=== PATIENT | female | born 1995 | race African-American/Black ===

== ENCOUNTER 2017-09-11 17:26 | Emergency (ER) | payer SELFPAY ==
[2017-09-11] MEDS ORDERED: DEXAMETHASONE 4 MG TABLET PO ONE (19:26)
[2017-09-11] MEDS ORDERED: IPRATROPIUM/ALBUTEROL 0.5-2.5 MG/3 ML AMPUL NEB ONE (19:26)
[2017-09-11] MEDS ORDERED: BUTALB/ACETAMINOPHEN/CAFFEINE 1 TAB EACH PO ONE (19:27)
[2017-09-11] MEDS ORDERED: IBUPROFEN 800 MG TABLET PO ONE (19:29)
--- NOTE | 2017-09-11 19:29 | ER Document Report ---
HPI - HPI Patient complains to provider of: cough, bodyache, COATES Onset: Other - 2 days Onset/Duration: Persistent Quality of pain: Achy Pain Level: 3 Context: Patient presents with nonproductive cough, headache and body aches that started yesterday. Patient complains of mild sore throat. Patient states she had a fever yesterday but none today. Patient denies any nausea, vomiting or diarrhea. Associated Symptoms: Body/muscle aches, Nonproductive cough, Fever - Yesterday, Rhinnorhea, Sore throat. denies: Chest pain, Earache, Nausea, Vomiting Exacerbated by: Denies Relieved by: Denies Similar symptoms previously: Yes Recently seen / treated by doctor: No - ROS ROS below otherwise negative: Yes Systems Reviewed and Negative: Yes All other systems reviewed and negative - CONSTITUTIONAL Constitutional: REPORTS: Fever - Yesterday - EENT EENT: REPORTS: Sore Throat, Congestion - NEURO Neurology: REPORTS: Headache - CARDIOVASCULAR Cardiovascular: DENIES: Chest pain - RESPIRATORY Respiratory: REPORTS: Coughing. DENIES: Trouble Breathing - GASTROINTESTINAL Gastrointestinal: DENIES: Abdominal Pain, Nausea, Patient vomiting, Diarrhea - REPRODUCTIVE Reproductive: DENIES: : - MUSCULOSKELETAL Notes: Generalized body aches - DERM Skin Color: Normal Skin Problems: None Past Medical History - General Information source: Patient - Social History Smoking Status: Never Smoker Frequency of alcohol use: Occasional Drug Abuse: None Occupation: [employer] Family History: Reviewed & Not Pertinent Pulmonary Medical History: Reports: Hx Asthma Past Surgical History: Reports: Hx Genitourinary Surgery - Immunizations Hx Diphtheria, Pertussis, Tetanus Vaccination: Yes Vertical Provider Document - CONSTITUTIONAL Agree With Documented VS: Yes Exam Limitations: No Limitations General Appearance: WD/WN, No Apparent Distress - INFECTION CONTROL TRAVEL OUTSIDE OF THE [place] IN LAST 30 DAYS: No - HEENT HEENT: Atraumatic, Normocephalic, Pharyngeal Tenderness, Pharyngeal Erythema. negative: Pharyngeal Exudate, Tympanic Membrane Red, Tympanic Membrane Bulging - NECK Neck: Normal Inspection, Supple. negative: Lymphadenopathy-Left, Lymphadenopathy-Right Notes: No meningismus, negative Kernig and Brudzinski - RESPIRATORY Respiratory: No Respiratory Distress, Chest Non-Tender, Wheezing O2 Sat by Pulse Oximetry: 99 - CARDIOVASCULAR Cardiovascular: Regular Rate, Regular Rhythm, No Murmur - BACK Back: Normal Inspection. negative: CVA Tenderness-Right, CVA Tenderness-Left - MUSCULOSKELETAL/EXTREMETIES Musculoskeletal/Extremeties: RAQUEL, FROM - NEURO Level of Consciousness: Awake, Alert, Appropriate Motor/Sensory: No Motor Deficit - DERM Integumentary: Warm, Dry, No Rash Course - Re-evaluation Re-evalutation: 09/11/17 20:53 Wheezing resolved. Patient states headache pain is starting to resolve. Patient states that aches are improving as well. Patient nontoxic in appearance. No concern for meningitis or encephalitis. No concern for pneumonia at this time. - Vital Signs Vital signs: Temp Pulse Resp BP Pulse Ox 98.7 F 82 16 138/78 H 99 09/11/17 17:39 09/11/17 17:39 09/11/17 17:39 09/11/17 17:39 09/11/17 17:39 Discharge - Discharge Clinical Impression: Wheezing Upper respiratory infection Qualifiers: URI type: unspecified URI Qualified Code(s): J06.9 - Acute upper respiratory infection, unspecified Headache Qualifiers: Headache type: unspecified Headache chronicity pattern: unspecified pattern Intractability: not intractable Qualified Code(s): R51 - Headache Condition: Stable Disposition: HOME, SELF-CARE Instructions: Acetaminophen, Headache ([facility]), Upper Respiratory Illness ([facility]), Viral Syndrome ([facility]) Additional Instructions: Return immediately for any new or worsening symptoms Followup with your primary care provider, call tomorrow to make a followup appointment Prescriptions: Butalb/Acetaminophen/Caffeine [Fioricet (50-325-40 mg) Tablet] 1 - 2 tab PO Q4H PRN #12 each PRN Reason: Naproxen [Naprosyn 250 Nmg Tablet] 1 tab PO BID #14 tablet Forms: Return to Work Referrals: LUC GARZA MD [PEDIATRICS] - Follow up tomorrow
[2017-09-11] MEDS ORDERED: ALBUTEROL SULFATE HFA (90 MCG/PUFF) 8 GM MDI (1 MDI/ER DISP) IH ONE (20:53)
[2017-09-11 21:09] VITALS: BP 136/87
== END 2017-09-11 21:05 | disposition home or self-care (01) ==
LOC: ER 17:26
DX: J45.909 Unspecified asthma, uncomplicated (principal); J02.9 Acute pharyngitis, unspecified; R51 Headache; R05 Cough; M79.1 Myalgia; J34.89 Other specified disorders of nose and nasal sinuses
CPT/HCPCS: 94640; 99283; J3490 ×2; J7620

== ENCOUNTER 2018-05-11 22:39 | Emergency (ER) | payer SELFPAY ==
[2018-05-11 22:49] VITALS: BP 127/81
--- NOTE | 2018-05-11 23:20 | RADIOLOGY REPORT (SQ) ---
EXAM DESCRIPTION: XR ANKLE 2 VIEWS COMPLETED DATE/TME: 05/11/2018 00:00 CLINICAL HISTORY: 22 years Female, Pain s/p injury- twisted ankle Friday COMPARISON: None. Findings: Bones, joints, and soft tissues of the LEFT XR ANKLE 2 VIEWS appear intact. IMPRESSION: No acute findings.
[2018-05-11] MEDS ORDERED: IBUPROFEN 600 MG TABLET PO ONE (23:51)
--- NOTE | 2018-05-11 23:57 | ER Document Report ---
ED Extremity Problem, Lower - General Chief Complaint: Ankle Injury Stated Complaint: LEFT ANKLE PAIN Time Seen by Provider: 05/11/18 23:36 Mode of Arrival: Ambulatory Information source: Patient Notes: Patient presents with chief complaint of left ankle pain after patient slipped down some steps on Friday and twisted the ankle. Patient reports she has been trying to take Tylenol at home but has had minimal relief. Patient requesting an x-ray today. TRAVEL OUTSIDE OF THE [place] IN LAST 30 DAYS: No - Related Data Allergies/Adverse Reactions: amoxicillin Allergy (Verified 09/11/17 17:26) Penicillins Allergy (Verified 09/11/17 17:26) Past Medical History - General Information source: Patient - Social History Smoking Status: Never Smoker Chew tobacco use (# tins/day): No Frequency of alcohol use: Rare Drug Abuse: None Family History: Reviewed & Not Pertinent Patient has suicidal ideation: No Patient has homicidal ideation: No Pulmonary Medical History: Reports: Hx Asthma Renal/ Medical History: Denies: Hx Peritoneal Dialysis Past Surgical History: Reports: Hx Genitourinary Surgery - prolapsed urethra - Immunizations Hx Diphtheria, Pertussis, Tetanus Vaccination: Yes Review of Systems - Review of Systems Constitutional: No symptoms reported EENT: No symptoms reported Cardiovascular: No symptoms reported Respiratory: No symptoms reported Gastrointestinal: No symptoms reported Genitourinary: No symptoms reported Female Genitourinary: No symptoms reported Musculoskeletal: See HPI Skin: No symptoms reported Hematologic/Lymphatic: No symptoms reported Neurological/Psychological: No symptoms reported Physical Exam - Vital signs Vitals: Temp Pulse Resp BP Pulse Ox 98.5 F 87 16 127/81 H 99 05/11/18 22:47 05/11/18 22:47 05/11/18 22:47 05/11/18 22:47 05/11/18 22:47 - Notes Notes: PHYSICAL EXAMINATION: GENERAL: Well-appearing, well-nourished and in no acute distress. HEAD: Atraumatic, normocephalic. EYES: Pupils equal round extraocular movements intact, conjunctiva are normal. ENT: Nares patent NECK: Normal range of motion LUNGS: No respiratory distress Musculoskeletal: Normal range of motion, mild swelling noted to left ankle, no ecchymosis, normal range of motion, capillary refill less than 3 seconds, normal motor and sensation distal to area of injury. NEUROLOGICAL: Normal speech, normal gait. PSYCH: Normal mood, normal affect. SKIN: Warm, Dry, normal turgor, no rashes or lesions noted. Course - Re-evaluation Re-evalutation: X-rays negative for any acute findings in the ankle. Patient will be placed in an Harinder wrap and put on crutches. Patient will be instructed to take ibuprofen 600 mg every 6 hours, ice and elevate the extremity. Follow-up with primary care if not improving over the next 3-5 days. - Vital Signs Vital signs: Temp Pulse Resp BP Pulse Ox 98.5 F 87 16 127/81 H 99 05/11/18 22:47 05/11/18 22:47 05/11/18 22:47 05/11/18 22:47 05/11/18 22:47 Procedures - Immobilization Left ankle Pre-Proc Neuro Vasc Exam: Normal Immobilizer type: Harinder wrap Performed by: Provider Post-Proc Neuro Vasc Exam: Normal Discharge - Discharge Clinical Impression: Left ankle pain Ankle sprain Qualifiers: Encounter type: initial encounter Involved ligament of ankle: unspecified ligament Laterality: left Qualified Code(s): S93.402A - Sprain of unspecified ligament of left ankle, initial encounter Condition: Stable Disposition: HOME, SELF-CARE Additional Instructions: HARINDER WRAP: A compression dressing (harinder wrap) has been placed. This helps hold the area still. It limits swelling and internal bleeding. The wrap should be comfortably snug -- not tight. You should feel a sense of pressure, but not severe pain under the wrap. Unless the physician tells you otherwise, you can adjust the wrap for comfort. If the wrap causes symptoms suggesting it's too tight -- uncomfortable pressure, swelling or discoloration beyond the wrap, numbness, or severe pain - - you must loosen the wrap. If these symptoms don't resolve promptly, return for re-evaluation. SPRAINED ANKLE: Your sprained ankle results from stretching or tearing of the ligaments which support the ankle. This usually results from twisting the foot inward and under. The ligaments will require time and protection in order to heal properly. Many ankle sprains are quite disabling, and should be taken seriously. The usual treatment for an ankle sprain is cold packs; protection with tape , splints, or wraps; elevation; and staying off the ankle for at least a day. As the ankle improves, you can walk IF it's not painful to bear weight. Sports are best postponed until healing is complete. More serious sprains usually require strengthening exercises after early healing. Your physician has assessed the seriousness of the ligament injury to your ankle. However, the treatment may change, depending on how your ankle progresses. If further exams were recommended, it is important that you follow through. Call the doctor if your foot becomes numb, painful, or severely swollen. USE OF CRUTCHES: The doctor has recommended that you not bear weight at this time. You will need to use crutches. Adjust the crutches so the tops come to about two inches under the armpit while you are standing upright. Use your hands -- not your armpits -- to support your weight. To get into a chair, support yourself with one crutch on the injured side. Hold the chair with the other hand, then lower yourself while putting all your weight on the good leg. Going up stairs is `good leg up, step up, then bring up crutches and bad leg.' Down stairs is `bad leg and crutches down, then bring good leg down.' If you develop numbness or swelling in an arm or hand, you are using the crutches incorrectly. Return if you are having any problems with the crutches. ICE & ELEVATION: Apply ice packs frequently against the painful area. Many different schedules are recommended, such as "20 minutes on, 20 minutes off" or "one hour ice, two hours rest." If you need to work, you may need to go longer between ice treatments. You should plan to have the area ice packed AT LEAST one- fourth of the time. The ice should be applied over the wrap, tape, or splint, or over a layer of cloth -- not directly against the skin. Some ice bags have a built-in cloth and can be put directly on the skin. Your injured part should be elevated as much as possible over the next 48 hours. Try to keep the injury above the level of the heart. Avoid use of the injured area. Elevation and rest will decrease the swelling. USE OF [id number] IBUPROFEN: Ibuprofen (Advil, Nuprin, Medipren, Motrin IB) is a medication for fever and pain control. In addition, it has anti- inflammatory effects which may be beneficial, especially in the treatment of injuries. It's best to take ibuprofen with food. Persons with ulcer disease or allergy to aspirin should notify their physician of this before taking ibuprofen. Ibuprofen can be given every four to six hours, for a total of four doses daily. 600 mg (3 tab) FOLLOW-UP CARE: If you have been referred to a physician for follow-up care, call the physician s office for an appointment as you were instructed or within the next two days. If you experience worsening or a significant change in your symptoms, notify the physician immediately or return to the Emergency Department at any time for re-evaluation. Take ibuprofen 600mg every 6 hours as needed for pain, ice and elevate as outlined above. Follow up with your primary care provider as directed. Referrals: LUC GARZA MD [Primary Care Provider] - Follow up as needed
== END 2018-05-12 00:16 | disposition home or self-care (01) ==
LOC: ER 22:39
DX: S93.402A Sprain of unspecified ligament of left ankle, initial encounter (principal); M25.572 Pain in left ankle and joints of left foot; X50.0XXA Overexertion from strenuous movement or load, initial encounter; Z88.0 Allergy status to penicillin; J45.909 Unspecified asthma, uncomplicated
CPT/HCPCS: 99283

== ENCOUNTER 2018-07-17 19:18 | Emergency (ER) | payer SELFPAY ==
[2018-07-17] MEDS ORDERED: DICYCLOMINE HCL 20 MG TABLET PO ONE (19:55)
[2018-07-17] MEDS ORDERED: KETOROLAC TROMETHAMINE 10 MG TABLET PO ONE (19:55)
--- NOTE | 2018-07-17 19:56 | ER Document Report ---
ED Medical Screen (RME) - General Chief Complaint: Abdominal Pain Stated Complaint: ABDOMINAL PAIN Time Seen by Provider: 07/17/18 19:54 Notes: 22 years old female presents today with diffuse abdominal pain/cramping for couple of days. And also having bilateral flank pain. Denies any nausea vomiting fever chills denies any diarrhea or constipation. Denies any dysuria frequency urgency. Her last menstrual cycle was 2 weeks ago lasted for about 3 days. Denies any past medical history past surgical history. On examination diffuse mild to moderate abdominal tenderness or noted. TRAVEL OUTSIDE OF THE [place] IN LAST 30 DAYS: No - Related Data Allergies/Adverse Reactions: amoxicillin Allergy (Verified 09/11/17 17:26) Penicillins Allergy (Verified 09/11/17 17:26) Past Medical History Pulmonary Medical History: Reports: Hx Asthma Renal/ Medical History: Denies: Hx Peritoneal Dialysis Past Surgical History: Reports: Hx Genitourinary Surgery - prolapsed urethra - Immunizations Hx Diphtheria, Pertussis, Tetanus Vaccination: Yes Physical Exam - Vital signs Vitals: Temp Pulse Resp BP Pulse Ox 97.6 F 95 18 142/76 H 100 07/17/18 19:30 07/17/18 19:30 07/17/18 19:30 07/17/18 19:30 07/17/18 19:30 Course - Vital Signs Vital signs: Temp Pulse Resp BP Pulse Ox 97.6 F 95 18 142/76 H 100 07/17/18 19:30 07/17/18 19:30 07/17/18 19:30 07/17/18 19:30 07/17/18 19:30 Doctor's Discharge - Discharge Referrals: LUC GARZA MD [Primary Care Provider] - Follow up as needed
[2018-07-17 20:37] LABS: ABSOLUTE BASOPHILS # (AUTO) 0.1 10^3/uL (0.0-0.2); ABSOLUTE EOSINOPHILS # (AUTO) 0.2 10^3/uL (0.0-0.6); ABSOLUTE MONOCYTES (AUTO) 1.1 10^3/uL (0.1-1.4); ABSOLUTE NEUT (AUTO) 5.4 10^3/uL (1.7-8.2); BASOPHILS % (AUTO) 0.9 % (0-2); EOSINOPHILS % (AUTO) 2.6 % (0-6); HEMATOCRIT 43.2 % (36.0-47.0); HEMOGLOBIN 14.7 g/dL (12.0-15.5); LYMPHOCYTES % (AUTO) 22.7 % (13-45); MEAN CORPUSCULAR HEMOGLOBIN 31.2 pg (27.0-33.4); MEAN CORPUSCULAR HGB CONC 34.1 g/dL (32.0-36.0); MEAN CORPUSCULAR VOLUME 92 fl (80-97); PLATELET COUNT 267 10^3/uL (150-450); RED BLOOD COUNT 4.72 10^6/uL (3.72-5.28); RED CELL DISTRIBUTION WIDTH 13.6 % (11.5-14.0); SEGMENTED NEUTROPHILS % (AUTO) 61.8 % (42-78); TOTAL CELLS COUNTED % (AUTO) 100 %; WHITE BLOOD COUNT 8.8 10^3/uL (4.0-10.5)
[2018-07-17 20:45] LABS: APPEARANCE,URINE CLOUDY; BILIRUBIN,URINE NEGATIVE (NEGATIVE); COLOR,URINE YELLOW; GLUCOSE, URINE NEGATIVE (NEGATIVE); KETONES,URINE 20 mg/dL (NEGATIVE); LEUKOCYTE ESTERASE,URINE LARGE (NEGATIVE); NITRITE,URINE NEGATIVE (NEGATIVE); PROTEIN,URINE NEGATIVE (NEGATIVE); URINE SPECIFIC GRAVITY 1.009
[2018-07-17 20:55] LABS: ALANINE AMINOTRANSFERASE 15 U/L (9-52); ALBUMIN 4.3 g/dL (3.5-5.0); ALKALINE PHOSPHATASE 76 U/L (38-126); ANION GAP 11 (5-19); ASPARTATE AMINO TRANSFERASE 23 U/L (14-36); BILIRUBIN,DIRECT 0.2 mg/dL (0.0-0.4); BILIRUBIN,TOTAL 0.6 mg/dL (0.2-1.3); BLOOD UREA NITROGEN 4 mg/dL (7-20); CALCIUM 9.5 mg/dL (8.4-10.2); CARBON DIOXIDE 26 mmol/L (22-30); CHLORIDE 100 mmol/L (98-107); GLUCOSE 82 mg/dL (75-110); LIPASE 42.5 U/L (23-300); POTASSIUM 3.9 mmol/L (3.6-5.0); TOTAL PROTEIN 7.6 g/dL (6.3-8.2)
--- NOTE | 2018-07-17 21:39 | ER Document Report ---
ED General - General Chief Complaint: Abdominal Pain Stated Complaint: ABDOMINAL PAIN Time Seen by Provider: 07/17/18 19:54 Notes: Patient is a 22-year-old at unknown gestational age who presents with concerns of intermittent lower abdominal discomfort and the possibility of being . The patient was not aware that she was at time of presentation. She states that the abdominal pain that she experienced earlier was a cramping, mild suprapubic abdominal discomfort which has now completely resolved. Nothing seemed to trigger the pain and it did resolve without intervention. Denies a history of similar pains during previous . She denies any vaginal bleeding, vaginal discharge or dysuria. She denies any vomiting or diarrhea. No abdominal trauma. No history of abdominal surgeries. Denies any symptoms of any kind. TRAVEL OUTSIDE OF THE [place] IN LAST 30 DAYS: No - Related Data Allergies/Adverse Reactions: amoxicillin Allergy (Verified 09/11/17 17:26) Penicillins Allergy (Verified 09/11/17 17:26) Past Medical History - General Information source: Patient - Social History Smoking Status: Never Smoker Frequency of alcohol use: None Drug Abuse: None Lives with: Family Family History: Reviewed & Not Pertinent Patient has suicidal ideation: No Patient has homicidal ideation: No Pulmonary Medical History: Reports: Hx Asthma Renal/ Medical History: Denies: Hx Peritoneal Dialysis Past Surgical History: Reports: Hx Genitourinary Surgery - prolapsed urethra - Immunizations Hx Diphtheria, Pertussis, Tetanus Vaccination: Yes Review of Systems - Review of Systems Notes: Constitutional: Negative for fever. HENT: Negative for sore throat. Eyes: Negative for visual changes. Cardiovascular: Negative for chest pain. Respiratory: Negative for shortness of breath. Gastrointestinal: Positive for abdominal pain now resolved Genitourinary: Negative for dysuria. Musculoskeletal: Negative for back pain. Skin: Negative for rash. Neurological: Negative for headaches, weakness or numbness. 10 point ROS negative except as marked above and in HPI. Physical Exam - Vital signs Vitals: Temp Pulse Resp BP Pulse Ox 97.6 F 95 18 142/76 H 100 07/17/18 19:30 07/17/18 19:30 07/17/18 19:30 07/17/18 19:30 07/17/18 19:30 Interpretation: Hypertensive Notes: PHYSICAL EXAMINATION: GENERAL: Well-appearing, well-nourished and in no acute distress. HEAD: Atraumatic, normocephalic. EYES: Pupils equal round and reactive to light, extraocular movements intact, sclera anicteric, conjunctiva are normal. ENT: nares patent, oropharynx clear without exudates. Moist mucous membranes. NECK: Normal range of motion, supple without lymphadenopathy LUNGS: Breath sounds clear to auscultation bilaterally and equal. No wheezes rales or rhonchi. HEART: Regular rate and rhythm without murmurs ABDOMEN: Soft, nontender, normoactive bowel sounds. No guarding, no rebound. No masses appreciated. EXTREMITIES: Normal range of motion, no pitting or edema. No cyanosis. NEUROLOGICAL: No focal neurological deficits. Moves all extremities spontaneously and on command. PSYCH: Normal mood, normal affect. SKIN: Warm, Dry, normal turgor, no rashes or lesions noted. Course - Re-evaluation Re-evalutation: 07/17/18 21:39 Patient is currently and presenting with lower abdominal pain. No vaginal bleeding or discharge. Formal ultrasound shows a viable intrauterine , appropriate cardiac activity and active movement. Patient denies any dysuria and urinalysis is a contaminated specimen. The patient does not have any focal right lower quadrant tenderness, rebound or guarding to suggest acute appendicitis. No right upper quadrant tenderness to suggest cholestasis of or an acute cholecystitis. Patient has tolerated oral intake here in the emergency department without difficulty. Vitals are within normal limits. At this time will discharge with return precautions and follow-up recommendations. Verbal discharge instructions given a the bedside and opportunity for questions given. Medication warnings reviewed. Patient is in agreement with this plan and has verbalized understanding of return precautions and the need for primary care follow-up in the next 24-72 hours. 07/17/18 23:06 - Vital Signs Vital signs: Temp Pulse Resp BP Pulse Ox 97.3 F 80 18 145/88 H 99 07/17/18 23:39 07/17/18 23:39 07/17/18 23:39 07/17/18 23:39 07/17/18 23:39 - Laboratory Result Diagrams: 07/17/18 20:15 07/17/18 20:15 Laboratory results interpreted by me: 07/17/18 07/17/18 07/17/18 20:05 20:15 20:15 BUN 4 L Beta HCG, Quant 29577.00 H Urine Ketones 20 H Urine Blood SMALL H Urine Urobilinogen 2.0 H Ur Leukocyte Esterase LARGE H Urine HCG, Qual POSITIVE H - Diagnostic Test Radiology reviewed: Reports reviewed Discharge - Discharge Clinical Impression: related abdominal pain of lower quadrant, antepartum, First trimester Condition: Good Disposition: HOME, SELF-CARE Additional Instructions: You were seen for abdominal pain during . Your ultrasound and labs are normal today. The exact cause your pain is uncertain but is likely related to your developing baby. Please follow-up with your [facility] in the next 24-48 hours. Return to the emergency department immediately if you have worsening of your pain, have persistent vomiting, develop a fever of greater than 100.4F, begin to have vaginal bleeding, or any other symptoms that are worrisome to you. Referrals: LUC GARZA MD [Primary Care Provider] - Follow up as needed
--- NOTE | 2018-07-17 22:33 | RADIOLOGY REPORT (SQ) ---
Obstetric ultrasound HISTORY: Abdominal pain, positive test. FINDINGS: Uterus is retroverted and measures 8.5 x 6.2 x 5.3 cm. There is a single viable IUP of estimated gestational age 6 weeks and six days. heart rate measures 140 bpm. Maternal ovaries are within normal limits. No abdominal adnexal masses. Cervix measures 3.1 cm. Probable right ovarian corpus luteal cyst measuring 2 cm. No free fluid in the cul-de-sac. IMPRESSION: Single viable IUP of six weeks and six days.
[2018-07-17 23:40] VITALS: BP 145/88
== END 2018-07-17 23:35 | disposition home or self-care (01) ==
LOC: ER 19:18
DX: O26.891 Other specified pregnancy related conditions, first trimester (principal); R10.30 Lower abdominal pain, unspecified; O99.511 Diseases of the respiratory system complicating pregnancy, first trimester; Z3A.01 Less than 8 weeks gestation of pregnancy; J45.909 Unspecified asthma, uncomplicated; Z88.0 Allergy status to penicillin
CPT/HCPCS: 99284; 36415; 84702; 83690; 85025; 81025; 80053; 81001; 76817; J3490 ×2

== ENCOUNTER 2018-07-23 12:48 | Emergency (ER) | payer SELFPAY ==
[2018-07-23 14:31] LABS: ABSOLUTE BASOPHILS # (AUTO) 0.1 10^3/uL (0.0-0.2); ABSOLUTE EOSINOPHILS # (AUTO) 0.1 10^3/uL (0.0-0.6); ABSOLUTE LYMPHOCYTES (AUTO) 1.8 10^3/uL (0.5-4.7); ABSOLUTE MONOCYTES (AUTO) 0.7 10^3/uL (0.1-1.4); ABSOLUTE NEUT (AUTO) 4.2 10^3/uL (1.7-8.2); HEMATOCRIT 42.4 % (36.0-47.0); HEMOGLOBIN 14.8 g/dL (12.0-15.5); LYMPHOCYTES % (AUTO) 26.4 % (13-45); MEAN CORPUSCULAR HEMOGLOBIN 31.7 pg (27.0-33.4); MEAN CORPUSCULAR VOLUME 91 fl (80-97); MONOCYTES % (AUTO) 10.1 % (3-13); PLATELET COUNT 280 10^3/uL (150-450); RED BLOOD COUNT 4.68 10^6/uL (3.72-5.28); RED CELL DISTRIBUTION WIDTH 13.4 % (11.5-14.0); SEGMENTED NEUTROPHILS % (AUTO) 61.5 % (42-78); TOTAL CELLS COUNTED % (AUTO) 100 %; WHITE BLOOD COUNT 6.9 10^3/uL (4.0-10.5)
[2018-07-23 14:41] LABS: AMORPHOUS SEDIMENT,URINE 1+ /HPF; APPEARANCE,URINE CLOUDY; BILIRUBIN,URINE NEGATIVE (NEGATIVE); COLOR,URINE YELLOW; GLUCOSE, URINE NEGATIVE (NEGATIVE); KETONES,URINE NEGATIVE (NEGATIVE); LEUKOCYTE ESTERASE,URINE LARGE (NEGATIVE); NITRITE,URINE NEGATIVE (NEGATIVE); PROTEIN,URINE NEGATIVE (NEGATIVE); URINE SPECIFIC GRAVITY 1.005; UROBILINOGEN,URINE NEGATIVE mg/dL (<2.0)
[2018-07-23 14:50] LABS: ANION GAP 15 (5-19); BLOOD UREA NITROGEN 3 mg/dL (7-20); CALCIUM 9.8 mg/dL (8.4-10.2); CARBON DIOXIDE 24 mmol/L (22-30); CHLORIDE 101 mmol/L (98-107); GLUCOSE 61 mg/dL (75-110); POTASSIUM 4.5 mmol/L (3.6-5.0); SODIUM 140.1 mmol/L (137-145)
--- NOTE | 2018-07-23 17:07 | RADIOLOGY REPORT (SQ) ---
EXAM DESCRIPTION: U/S OB TRANSVAG W/DOPPLER COMPLETED DATE/TIME: 07/23/2018 4:45 pm REASON FOR STUDY: + preg bleeding COMPARISON: 07/17/2018 TECHNIQUE: Endovaginal static and realtime grayscale images acquired of the pelvis. Additional antonella cted spectral and color Doppler images recorded. All images stored on PACs. bHCG: None available CLINICAL DATES: Last menses 05/23/2018 LIMITATIONS: Left ovary not visualized FINDINGS: FETUS: Single Living intrauterine . ULTRASOUND EGA: 7 weeks 4 days ULTRASOUND ADRIENNE: 03/07/2018 EFW: Not applicable less than 20 weeks. CRL: 1.6 cm FHR: 150 beats per minute. SURVEY: Too early to assess. AMNIOTIC FLUID: Adequate amount. PLACENTA: Not yet developed due to early gestation. SUBCHORIONIC BLEED: No. SIZE OF BLEED: Not applicable. UTERUS: No masses. No anomalies. Uterus 9 x 6 x 6 cm in size CERVICAL LENGTH: 3.7 cm Closed. RIGHT ADNEXA: Normal ovary with normal vascular flow. Right ovary 4 x 2.7 x 2.1 cm in size. No adnexal free fluid. No adnexal masses. LEFT ADNEXA: Not visualized due to adnexal bowel gas and limited acoustic window FREE FLUID: None. OTHER: No other significant finding. IMPRESSION: LIVING INTRAUTERINE . EGA 7 weeks 4 days Trimester of : First - 0 to 13 weeks. TECHNICAL DOCUMENTATION: JOB ID: [id number] [employer]- All Rights Reserved Reading location - IP/workstation name: [email or web address]
[2018-07-23 17:18] VITALS: BP 140/75
--- NOTE | 2018-07-23 17:26 | ER Document Report ---
ED General - General Chief Complaint: Vag Bleeding, +preg <12wks Stated Complaint: BACK PAIN, VAGINAL BLEEDING Time Seen by Provider: 07/23/18 13:51 TRAVEL OUTSIDE OF THE [place] IN LAST 30 DAYS: No - Related Data Allergies/Adverse Reactions: amoxicillin Allergy (Verified 09/11/17 17:26) Penicillins Allergy (Verified 09/11/17 17:26) Past Medical History - General Last Menstrual Period: April - Social History Smoking Status: Never Smoker Frequency of alcohol use: None Drug Abuse: None Family History: Reviewed & Not Pertinent Patient has suicidal ideation: No Patient has homicidal ideation: No Pulmonary Medical History: Reports: Hx Asthma Renal/ Medical History: Denies: Hx Peritoneal Dialysis Past Surgical History: Reports: Hx Genitourinary Surgery - prolapsed urethra - Immunizations Hx Diphtheria, Pertussis, Tetanus Vaccination: Yes Physical Exam - Vital signs Vitals: Temp Pulse Resp BP Pulse Ox 97.9 F 84 16 140/77 H 100 07/23/18 13:12 07/23/18 13:12 07/23/18 13:12 07/23/18 13:12 07/23/18 13:12 Course - Vital Signs Vital signs: Temp Pulse Resp BP Pulse Ox 97.8 F 80 16 140/75 H 100 07/23/18 17:18 07/23/18 17:18 07/23/18 17:18 07/23/18 17:18 07/23/18 17:18 - Laboratory Result Diagrams: 07/23/18 14:16 07/23/18 14:16 Laboratory results interpreted by me: 07/23/18 07/23/18 14:16 14:16 BUN 3 L Glucose 61 L Beta HCG, Quant 020141.00 H Urine Blood MODERATE H Ur Leukocyte Esterase LARGE H Urine Ascorbic Acid 20 H Discharge - Discharge Clinical Impression: Bleeding in early Instructions: Rhogam ([facility]), Bleeding During Early ([facility]), 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 Your laboratory studies also did not show any concerning pathology. Because you are who is negative and having spotting we will have to treat you with RhoGam. I would highly recommend she follow-up with health department and her CHIEF ADMINISTRATIVE OFFICER in the next week to 2 weeks. Please observe pelvic rest nothing inside the vagina no sex no toys no tampons I will give you a prescription for Reglan to help out with any nausea that she may experience below the list of medications she can take [id number]. For nausea and vomiting during I recomment: Start with 10-12.5 mg of pyridoxine (vitamin B6) three times a day for 2 days. If not fully effective, Increase to 12.5 mg of pyridoxine four times a day for 2 days. If not fully effective, Increase to 25 mg of pyridoxine three times a day for 2 days. If not fully effective, Continue 25 mg pyridoxine 3 times a day, and add 12.5 mg of doxylamine before bedtime each day for 2 days. If not fully effective, Continue 25 mg pyridoxine 3 times a day, and take 12.5 mg of doxylamine twice a day. If not fully effective, Continue 25 mg pyridoxine 3 times a day, and take 12.5 mg of doxylamine three times a day. If not fully effective, Continue 25 mg pyridoxine 3 times a day, and 12.5 mg of doxylamine 3 times a day , while adding Emetrol, one to two tablespoons (15-30 cc) taken once or twice a day as needed. (Emetrol is an bfnk-frc-htroojk mixture of sugar syrups and phosphoric acid [phosphorylated carbohydrate solution]) that acts by soothing the actual wall of the gastrointestinal tract). If not fully effective, Consult with your doctor. Prescriptions: Metoclopramide HCl [Reglan] 5 mg PO Q6 #30 tablet Referrals: LUC GARZA MD [Primary Care Provider] - Follow up as needed
--- NOTE | 2018-07-23 21:16 | ER Document Report ---
ED General - General Chief Complaint: Vag Bleeding, +preg <12wks Stated Complaint: BACK PAIN, VAGINAL BLEEDING Time Seen by Provider: 07/23/18 13:51 TRAVEL OUTSIDE OF THE [place] IN LAST 30 DAYS: No - HPI Patient complains to provider of: Back pain vaginal spotting positive Notes: Patient coming in for vaginal spotting and back pain. Patient was recently seen for back pain as well found to be with an IUP. Patient was not on any fertility drugs at this time. Patient states spotting encouraged prior to arrival. Patient states that she thinks that she is Rh- however is unsure but states she has received RhoGam in the past. Patient denies any trauma denies any fevers chills denies any diarrhea. Patient otherwise resting comfortably no obvious distress upon my evaluation. - Related Data Allergies/Adverse Reactions: amoxicillin Allergy (Verified 09/11/17 17:26) Penicillins Allergy (Verified 09/11/17 17:26) Past Medical History - General Last Menstrual Period: April - Social History Smoking Status: Never Smoker Frequency of alcohol use: None Drug Abuse: None Family History: Reviewed & Not Pertinent Patient has suicidal ideation: No Patient has homicidal ideation: No Pulmonary Medical History: Reports: Hx Asthma Renal/ Medical History: Denies: Hx Peritoneal Dialysis Past Surgical History: Reports: Hx Genitourinary Surgery - prolapsed urethra - Immunizations Hx Diphtheria, Pertussis, Tetanus Vaccination: Yes Review of Systems - Review of Systems Constitutional: No symptoms reported EENT: No symptoms reported Cardiovascular: No symptoms reported Respiratory: No symptoms reported Gastrointestinal: No symptoms reported Genitourinary: No symptoms reported Female Genitourinary: Vaginal bleeding Musculoskeletal: No symptoms reported Skin: No symptoms reported Hematologic/Lymphatic: No symptoms reported Neurological/Psychological: No symptoms reported -: Yes All other systems reviewed and negative Physical Exam - Vital signs Vitals: Temp Pulse Resp BP Pulse Ox 97.9 F 84 16 140/77 H 100 07/23/18 13:12 07/23/18 13:12 07/23/18 13:12 07/23/18 13:12 07/23/18 13:12 Interpretation: Normal - General General appearance: Appears well, Alert - HEENT Head: Normocephalic, Atraumatic Eyes: Normal Pupils: PERRL - Respiratory Respiratory status: No respiratory distress Chest status: Nontender Breath sounds: Normal Chest palpation: Normal - Cardiovascular Rhythm: Regular Heart sounds: Normal auscultation Murmur: No - Abdominal Inspection: Normal Distension: No distension Bowel sounds: Normal Tenderness: Nontender Organomegaly: No organomegaly - Back Back: Normal, Nontender - Extremities General upper extremity: Normal inspection, Nontender, Normal color, Normal ROM , Normal temperature General lower extremity: Normal inspection, Nontender, Normal color, Normal ROM , Normal temperature, Normal weight bearing. No: Jaspal's sign - Neurological Neuro grossly intact: Yes Cognition: Normal Orientation: AAOx4 Taylor Coma Scale Eye Opening: Spontaneous [place] Coma Scale Verbal: Oriented Taylor Coma Scale Motor: Obeys Commands Taylor Coma Scale Total: 15 Speech: Normal Motor strength normal: LUE, RUE, LLE, RLE Sensory: Normal - Psychological Associated symptoms: Normal affect, Normal mood - Skin Skin Temperature: Warm Skin Moisture: Dry Skin Color: Normal Course - Re-evaluation Re-evalutation: 07/23/18 21:15 Ultrasound showed no worrisome pathology. Ultrasound results laboratory results were reviewed with the patient. Patient is Rh+ no RhoGam needed at this time. Patient was recommended to observe pelvic rest continue with vitamins continue with nausea medication as prescribed. Discussed with the patient bleeding will increase chance of miscarriage approximately 10% . Patient states understanding. Follow-up with PUBLIC HEALTH DIRECTOR or the health department. Patient states understanding patient is to return to ER symptoms worsen. - Vital Signs Vital signs: Temp Pulse Resp BP Pulse Ox 97.8 F 80 16 140/75 H 100 07/23/18 17:18 07/23/18 17:18 07/23/18 17:18 07/23/18 17:18 07/23/18 17:18 - Laboratory Result Diagrams: 07/23/18 14:16 07/23/18 14:16 Laboratory results interpreted by me: 07/23/18 07/23/18 14:16 14:16 BUN 3 L Glucose 61 L Beta HCG, Quant 528489.00 H Urine Blood MODERATE H Ur Leukocyte Esterase LARGE H Urine Ascorbic Acid 20 H Discharge - Discharge Clinical Impression: Bleeding in early Condition: Good Disposition: HOME, SELF-CARE Instructions: Bleeding During Early ([facility]), Ob-Director Mobile Doctors, Rhogam ( [facility]) Additional Instructions: At this time your ultrasound does not show any significant pathology. Your laboratory studies also did not show any concerning pathology. Because you are who is negative and having spotting we will have to treat you with RhoGam. I would highly recommend she follow-up with health department and her PUBLIC HEALTH DIRECTOR in the next week to 2 weeks. Please observe pelvic rest nothing inside the vagina no sex no toys no tampons I will give you a prescription for Reglan to help out with any nausea that she may experience below the list of medications she can take [id number]. For nausea and vomiting during I recomment: Start with 10-12.5 mg of pyridoxine (vitamin B6) three times a day for 2 days. If not fully effective, Increase to 12.5 mg of pyridoxine four times a day for 2 days. If not fully effective, Increase to 25 mg of pyridoxine three times a day for 2 days. If not fully effective, Continue 25 mg pyridoxine 3 times a day, and add 12.5 mg of doxylamine before bedtime each day for 2 days. If not fully effective, Continue 25 mg pyridoxine 3 times a day, and take 12.5 mg of doxylamine twice a day. If not fully effective, Continue 25 mg pyridoxine 3 times a day, and take 12.5 mg of doxylamine three times a day. If not fully effective, Continue 25 mg pyridoxine 3 times a day, and 12.5 mg of doxylamine 3 times a day , while adding Emetrol, one to two tablespoons (15-30 cc) taken once or twice a day as needed. (Emetrol is an [id number]-uda-xmqmfri mixture of sugar syrups and phosphoric acid [phosphorylated carbohydrate solution]) that acts by soothing the actual wall of the gastrointestinal tract). If not fully effective, Consult with your doctor. Prescriptions: Metoclopramide HCl [Reglan] 5 mg PO Q6 #30 tablet Referrals: LUC GARZA MD [Primary Care Provider] - Follow up as needed
== END 2018-07-23 17:28 | disposition home or self-care (01) ==
LOC: ER 12:48
DX: O46.91 Antepartum hemorrhage, unspecified, first trimester (principal); M54.9 Dorsalgia, unspecified; R40.2412 Glasgow coma scale score 13-15, at arrival to emergency department; Z88.0 Allergy status to penicillin; Z88.1 Allergy status to other antibiotic agents
CPT/HCPCS: 99284; 86900; 86901; 36415; 86850; 84702; 85025; 80048; 81001; 76817; 93976; J2790

== ENCOUNTER 2018-11-10 13:35 | Outpatient (CLI) | payer MEDICAID ==
[2018-11-10 16:12] LABS: APPEARANCE,URINE SLIGHTLY-CLOUDY; BILIRUBIN,URINE NEGATIVE (NEGATIVE); COLOR,URINE YELLOW; GLUCOSE, URINE NEGATIVE (NEGATIVE); KETONES,URINE NEGATIVE (NEGATIVE); LEUKOCYTE ESTERASE,URINE LARGE (NEGATIVE); NITRITE,URINE NEGATIVE (NEGATIVE); PROTEIN,URINE NEGATIVE (NEGATIVE); URINE SPECIFIC GRAVITY 1.016; UROBILINOGEN,URINE NEGATIVE mg/dL (<2.0)
[2018-11-10 16:25] LABS: URINE AMPHETAMINES SCREEN NEGATIVE; URINE BARBITURATES SCREEN NEGATIVE; URINE BENZODIAZEPINES SCREEN NEGATIVE; URINE COCAINE SCREEN NEGATIVE; URINE MARIJUANA (THC) SCREEN NEGATIVE; URINE METHADONE SCREEN NEGATIVE; URINE PHENCYCLIDINE SCREEN NEGATIVE
== END 2018-11-10 14:49 | disposition home or self-care (01) ==
LOC: LC 13:35
PROVIDERS: ATTEND Obstetrics & Gynecology
PROC: 4A1HXCZ Monitoring of Products of Conception, Cardiac Rate, External Approach (ICD-10-PCS; principal; 2018-11-10)
DX: O36.8120 Decreased fetal movements, second trimester, not applicable or unspecified (principal); Z3A.23 23 weeks gestation of pregnancy
CPT/HCPCS: 80307; 81001

== ENCOUNTER 2018-11-13 16:58 | Outpatient (CLI) | payer MEDICAID ==
[2018-11-13 17:45] LABS: APPEARANCE,URINE SLIGHTLY-CLOUDY; BILIRUBIN,URINE NEGATIVE (NEGATIVE); COLOR,URINE YELLOW; GLUCOSE, URINE NEGATIVE (NEGATIVE); KETONES,URINE NEGATIVE (NEGATIVE); LEUKOCYTE ESTERASE,URINE LARGE (NEGATIVE); NITRITE,URINE NEGATIVE (NEGATIVE); PROTEIN,URINE NEGATIVE (NEGATIVE); URINE SPECIFIC GRAVITY 1.008; UROBILINOGEN,URINE NEGATIVE mg/dL (<2.0)
[2018-11-13 17:59] LABS: URINE AMPHETAMINES SCREEN NEGATIVE; URINE BARBITURATES SCREEN NEGATIVE; URINE BENZODIAZEPINES SCREEN NEGATIVE; URINE COCAINE SCREEN NEGATIVE; URINE MARIJUANA (THC) SCREEN NEGATIVE; URINE METHADONE SCREEN NEGATIVE; URINE PHENCYCLIDINE SCREEN NEGATIVE
[2018-11-13] MEDS ORDERED: LIDOCAINE 1% INJ-PF (10 MG/ML) 30 ML SDV INFIL ONE (18:03)
[2018-11-13] MEDS ORDERED: CEFTRIAXONE INJ 1000 MG VIAL IM ONE (18:03)
[2018-11-13] MEDS ORDERED: CEFTRIAXONE INJ 1000 MG VIAL ONE (18:09)
[2018-11-13] MEDS ORDERED: LIDOCAINE 1% INJ-PF (10 MG/ML) 30 ML SDV ONE (18:09)
--- NOTE | 2018-11-13 18:15 | RADIOLOGY REPORT (SQ) ---
EXAM DESCRIPTION: U/S OB LIMITED COMPLETED DATE/TIME: 11/13/2018 5:57 pm REASON FOR STUDY: cervical length COMPARISON: OB ultrasound 07/17/2018 TECHNIQUE: Limited transabdominal grayscale ultrasound for evaluation of specific requested obstetri daisy parameters. LIMITATIONS: None. FINDINGS: CERVICAL LENGTH: 3.1 Closed. JOBY: 16.9 cm. FHR: 141 beats per minute. PRESENTATION: Breech PLACENTA: Posterior fundal grade 1. No previa or abruption ANATOMY: Not assessed OTHER: No other significant findings. IMPRESSION: LIMITED OBSTETRICAL ULTRASOUND WITH MEASURED PARAMETERS DELINEATED ABOVE. Trimester of : Second trimester - 13 weeks 1 day to 27 weeks 6 days. TECHNICAL DOCUMENTATION: JOB ID: [id number] [employer]- All Rights Reserved Reading location - IP/workstation name: [email or web address]
== END 2018-11-13 18:31 | disposition home or self-care (01) ==
LOC: LC 16:58
PROVIDERS: ATTEND Obstetrics & Gynecology Gynecology
PROC: 4A1HXCZ Monitoring of Products of Conception, Cardiac Rate, External Approach (ICD-10-PCS; principal; 2018-11-13)
DX: O23.42 Unspecified infection of urinary tract in pregnancy, second trimester (principal); Z3A.23 23 weeks gestation of pregnancy
CPT/HCPCS: 87086; 81001; 80307; 76815; 59899; J3490; J0696

== ENCOUNTER 2019-02-04 15:05 | Outpatient (CLI) | payer MEDICAID ==
--- NOTE | 2019-02-04 16:07 | Non Stress Test Report ---
Non Stress Test Datetime Report Generated by CPN: 02/04/2019 16:06 DEMOGRAPHIC Test Number: 1 EGA NST: 35.4 INDICATION Indication for Study: Ordered by Provider Indication for Study (NST) Other: NR NST in office VITAL SIGNS Temperature - NST: 99.0 Pulse - NST: 105 RESP - NST: 18 NBPSYS NST: 113 NBPDIA NST: 56 MONITORING Monitor Explained: Monitor Explained; Test Explained; Patient Verbalized Understanding Time on Monitor: 02/04/2019 15:27 Time off Monitor: 02/04/2019 15:58 Time off Monitor: 02/04/2019 16:00 NST Duration: 31 NST INTERVENTIONS NST Interventions: PO Hydration; Oxytocin Challenge Test Physician Notified NST: Dr Adamson BABY A: [id number] BABY A Movement : Present Contraction Frequency : intermittent Contraction Frequency : 0 FHR Baseline : 140 FHR Baseline : 145 Accelerations : 15X15 Decelerations : None Variability : Moderate 6-25bpm NST Review: Meets Criteria for Reactive NST NST Review and Verified By : Татьяна Hatfield RNC NST Results: Reactive NST Results: Reactive NST REPORT Report Trigger: Send Report
== END 2019-02-04 16:02 | disposition home or self-care (01) ==
LOC: LC 15:05
PROVIDERS: ATTEND Obstetrics & Gynecology
PROC: 4A1HXCZ Monitoring of Products of Conception, Cardiac Rate, External Approach (ICD-10-PCS; principal; 2019-02-04)
DX: O26.893 Other specified pregnancy related conditions, third trimester (principal); Z3A.36 36 weeks gestation of pregnancy

== ENCOUNTER 2019-02-09 21:43 | Outpatient (CLI) | payer MEDICAID ==
[2019-02-09 22:25] LABS: APPEARANCE,URINE SLIGHTLY-CLOUDY; BILIRUBIN,URINE NEGATIVE (NEGATIVE); COLOR,URINE YELLOW; GLUCOSE, URINE NEGATIVE (NEGATIVE); KETONES,URINE NEGATIVE (NEGATIVE); LEUKOCYTE ESTERASE,URINE LARGE (NEGATIVE); NITRITE,URINE NEGATIVE (NEGATIVE); PROTEIN,URINE NEGATIVE (NEGATIVE); URINE SPECIFIC GRAVITY 1.009; UROBILINOGEN,URINE NEGATIVE mg/dL (<2.0)
[2019-02-09 22:36] LABS: URINE AMPHETAMINES SCREEN NEGATIVE; URINE BARBITURATES SCREEN NEGATIVE; URINE BENZODIAZEPINES SCREEN NEGATIVE; URINE COCAINE SCREEN NEGATIVE; URINE MARIJUANA (THC) SCREEN NEGATIVE; URINE METHADONE SCREEN NEGATIVE
[2019-02-09 22:40] LABS: URINE PHENCYCLIDINE SCREEN NEGATIVE
== END 2019-02-09 22:58 | disposition home or self-care (01) ==
LOC: LC 21:43
PROVIDERS: ATTEND Obstetrics & Gynecology
PROC: 4A1HXCZ Monitoring of Products of Conception, Cardiac Rate, External Approach (ICD-10-PCS; principal; 2019-02-09)
DX: Z36.89 Encounter for other specified antenatal screening (principal); Z3A.36 36 weeks gestation of pregnancy
CPT/HCPCS: 59025; 80307; 81001

== ENCOUNTER 2019-02-12 01:00 | Outpatient (CLI) | payer MEDICAID ==
[2019-02-12 02:10] LABS: APPEARANCE,URINE TURBID; BILIRUBIN,URINE NEGATIVE (NEGATIVE); COLOR,URINE YELLOW; GLUCOSE, URINE NEGATIVE (NEGATIVE); KETONES,URINE NEGATIVE (NEGATIVE); LEUKOCYTE ESTERASE,URINE LARGE (NEGATIVE); NITRITE,URINE NEGATIVE (NEGATIVE); PROTEIN,URINE NEGATIVE (NEGATIVE); URINE SPECIFIC GRAVITY 1.004; UROBILINOGEN,URINE NEGATIVE mg/dL (<2.0)
[2019-02-12 02:22] LABS: URINE AMPHETAMINES SCREEN NEGATIVE; URINE BARBITURATES SCREEN NEGATIVE; URINE BENZODIAZEPINES SCREEN NEGATIVE; URINE COCAINE SCREEN NEGATIVE; URINE MARIJUANA (THC) SCREEN NEGATIVE; URINE METHADONE SCREEN NEGATIVE; URINE PHENCYCLIDINE SCREEN NEGATIVE
[2019-02-12] MEDS ORDERED: NITROFURANTOIN MONOHYD/M-CRYST 100 MG CAPSULE ONE (02:22)
[2019-02-12] MEDS ORDERED: NITROFURANTOIN MONOHYD/M-CRYST 100 MG CAPSULE PO ONE (02:30)
--- NOTE | 2019-02-12 02:42 | Non Stress Test Report ---
Non Stress Test Datetime Report Generated by CPN: 02/12/2019 02:42 DEMOGRAPHIC Test Number: 2 EGA NST: 36.5 EGA NST: 36.2 INDICATION Indication for Study: Ordered by Provider Indication for Study: Ordered by Provider URINE RESULTS Urine Glucose - NST: Positive MONITORING Monitor Explained: Monitor Explained; Test Explained; Patient Verbalized Understanding Monitor Explained: Monitor Explained; Test Explained; Patient Verbalized Understanding Time on Monitor: 02/12/2019 01:30 Time on Monitor: 02/09/2019 22:01 Time off Monitor: 02/12/2019 02:25 NST Duration: 55 NST INTERVENTIONS NST Interventions: PO Hydration NST Interventions: None Physician Notified NST: Dr. Braydon BABY A: [id number] BABY A Movement : Present Movement : Present Contraction Frequency : no ctx FHR Baseline : 135 Accelerations : 15X15 Decelerations : None Variability : Moderate 6-25bpm NST Review: Meets Criteria for Reactive NST NST Review: Meets Criteria for Reactive NST NST Review and Verified By : Harpal Begum RN NST Review and Verified By : SCOTT Manuel NST Results: Reactive NST Results: Reactive NST REPORT Report Trigger: Send Report
== END 2019-02-12 02:35 | disposition home or self-care (01) ==
LOC: LC 01:00
PROVIDERS: ATTEND Obstetrics & Gynecology
PROC: 4A1HXCZ Monitoring of Products of Conception, Cardiac Rate, External Approach (ICD-10-PCS; principal; 2019-02-12)
DX: O47.03 False labor before 37 completed weeks of gestation, third trimester (principal); O23.43 Unspecified infection of urinary tract in pregnancy, third trimester; Z3A.36 36 weeks gestation of pregnancy
CPT/HCPCS: 59025; 81001; 80307; J3490; J8499

== ENCOUNTER 2019-02-15 10:47 | Outpatient (CLI) | payer MEDICAID ==
--- NOTE | 2019-02-15 11:24 | Non Stress Test Report ---
Non Stress Test Datetime Report Generated by CPN: 02/15/2019 11:24 DEMOGRAPHIC EGA NST: 37.1 INDICATION Indication for Study: Chronic Hypertension; Ordered by Provider Indication for Study (NST) Other: repeat NST from office VITAL SIGNS Temperature - NST: 97.5 Pulse - NST: 112 RESP - NST: 16 NBPSYS NST: 114 NBPDIA NST: 71 URINE RESULTS Urine Protein, NST: Positive MONITORING Monitor Explained: Monitor Explained; Test Explained; Patient Verbalized Understanding Time on Monitor: 02/15/2019 10:56 Time off Monitor: 02/15/2019 11:18 NST Duration: 22 NST INTERVENTIONS NST Interventions: PO Hydration; Reposition Patient Physician Notified NST: K Barrow CNM BABY A: [id number] BABY A Movement : Present Contraction Frequency : none FHR Baseline : 135 Accelerations : 15X15 Decelerations : None Variability : Moderate 6-25bpm NST Review: Meets Criteria for Reactive NST NST Review and Verified By : B Baidy RN NST Results: Reactive NST REPORT Report Trigger: Send Report
== END 2019-02-15 11:23 | disposition home or self-care (01) ==
LOC: LC 10:47
PROVIDERS: ATTEND Student in an Organized Health Care Education/Training Program
PROC: 4A1HXCZ Monitoring of Products of Conception, Cardiac Rate, External Approach (ICD-10-PCS; principal; 2019-02-15)
DX: O16.3 Unspecified maternal hypertension, third trimester (principal); Z3A.37 37 weeks gestation of pregnancy
CPT/HCPCS: 59025

== ENCOUNTER 2019-02-21 02:45 | Outpatient (CLI) | payer MEDICAID ==
[2019-02-21 03:43] LABS: APPEARANCE,URINE SLIGHTLY-CLOUDY; BILIRUBIN,URINE NEGATIVE (NEGATIVE); COLOR,URINE YELLOW; GLUCOSE, URINE NEGATIVE (NEGATIVE); KETONES,URINE NEGATIVE (NEGATIVE); LEUKOCYTE ESTERASE,URINE LARGE (NEGATIVE); NITRITE,URINE NEGATIVE (NEGATIVE); PROTEIN,URINE NEGATIVE (NEGATIVE); URINE SPECIFIC GRAVITY 1.008; UROBILINOGEN,URINE NEGATIVE mg/dL (<2.0)
[2019-02-21 04:07] LABS: URINE AMPHETAMINES SCREEN NEGATIVE; URINE BARBITURATES SCREEN NEGATIVE; URINE BENZODIAZEPINES SCREEN NEGATIVE; URINE COCAINE SCREEN NEGATIVE; URINE MARIJUANA (THC) SCREEN NEGATIVE; URINE METHADONE SCREEN NEGATIVE; URINE PHENCYCLIDINE SCREEN NEGATIVE
[2019-02-21] MEDS ORDERED: HYDROXYZINE PAMOATE 50 MG CAPSULE PO ONE (06:11)
--- NOTE | 2019-02-21 07:06 | Non Stress Test Report ---
Non Stress Test Datetime Report Generated by CPN: 02/21/2019 07:06 DEMOGRAPHIC EGA NST: 38.0 INDICATION Indication for Study: Ordered by Provider URINE RESULTS Urine Protein, NST: Negative Urine Ketones - NST: Negative Urine Glucose - NST: Negative Urine Blood - NST: Negative MONITORING Monitor Explained: Monitor Explained; Test Explained; Patient Verbalized Understanding Time on Monitor: 02/21/2019 03:00 Time off Monitor: 02/21/2019 05:36 NST Duration: 156 NST INTERVENTIONS NST Interventions: PO Hydration Physician Notified NST: Dr. Trammell BABY A: [id number] BABY A Movement : Present Contraction Frequency : Irregular FHR Baseline : 140 Accelerations : 15X15 Decelerations : None Variability : Moderate 6-25bpm NST Review: Questionable if Meets Criteria for Reactive NST NST Review and Verified By : Marisela Corbett RN NST Results: Reactive NST REPORT Report Trigger: Send Report
== END 2019-02-21 06:25 | disposition home or self-care (01) ==
LOC: LC 02:45
PROVIDERS: ATTEND Student in an Organized Health Care Education/Training Program
PROC: 4A1HXCZ Monitoring of Products of Conception, Cardiac Rate, External Approach (ICD-10-PCS; principal; 2019-02-21)
DX: O47.1 False labor at or after 37 completed weeks of gestation (principal); Z3A.38 38 weeks gestation of pregnancy
CPT/HCPCS: 59025; 80307; 81005; 84112

== ENCOUNTER 2019-02-23 11:51 | Outpatient (CLI) | payer MEDICAID ==
[2019-02-23 12:44] LABS: APPEARANCE,URINE SLIGHTLY-CLOUDY; BILIRUBIN,URINE NEGATIVE (NEGATIVE); COLOR,URINE STRAW; GLUCOSE, URINE NEGATIVE (NEGATIVE); KETONES,URINE NEGATIVE (NEGATIVE); LEUKOCYTE ESTERASE,URINE LARGE (NEGATIVE); NITRITE,URINE NEGATIVE (NEGATIVE); PROTEIN,URINE NEGATIVE (NEGATIVE); URINE SPECIFIC GRAVITY 1.002; UROBILINOGEN,URINE NEGATIVE mg/dL (<2.0)
[2019-02-23 13:07] LABS: URINE AMPHETAMINES SCREEN NEGATIVE; URINE BARBITURATES SCREEN NEGATIVE; URINE BENZODIAZEPINES SCREEN NEGATIVE; URINE COCAINE SCREEN NEGATIVE; URINE MARIJUANA (THC) SCREEN NEGATIVE; URINE METHADONE SCREEN NEGATIVE; URINE PHENCYCLIDINE SCREEN NEGATIVE
--- NOTE | 2019-02-23 15:55 | RADIOLOGY REPORT (SQ) ---
EXAM DESCRIPTION: U/S OB LIMITED COMPLETED DATE/TIME: 02/23/2019 3:45 pm REASON FOR STUDY: JOBY piror JOBY low just JOBY 38 weeks 2 days gestation. COMPARISON: 11/13/2018 TECHNIQUE: Limited transabdominal grayscale ultrasound for evaluation of specific requested obstetri daisy parameters. LIMITATIONS: None. FINDINGS: CERVICAL LENGTH: Not imaged. Closed. JOBY: 7.8 cm. Cm. FHR: 143 beats per minute. PRESENTATION: Cephalic. PLACENTA: Fundal. ANATOMY: Not assessed OTHER: No other significant findings. IMPRESSION: LIMITED OBSTETRICAL ULTRASOUND WITH MEASURED PARAMETERS DELINEATED ABOVE. Trimester of : Third trimester - 28 weeks to delivery. TECHNICAL DOCUMENTATION: JOB ID: [id number] [employer]- All Rights Reserved Reading location - IP/workstation name: [email or web address]
--- NOTE | 2019-02-23 17:31 | Non Stress Test Report ---
Non Stress Test Datetime Report Generated by CPN: 02/23/2019 17:31 DEMOGRAPHIC Test Number: 6 EGA NST: 38.2 INDICATION Indication for Study: Ordered by Provider Indication for Study (NST) Other: Rehydrate, Repeat JOBY MONITORING Monitor Explained: Monitor Explained; Test Explained; Patient Verbalized Understanding Time on Monitor: 02/23/2019 13:20 Time off Monitor: 02/23/2019 15:15 NST Duration: 115 NST INTERVENTIONS NST Interventions: PO Hydration; IV Fluids; Reposition Patient Physician Notified NST: C. Mcmillan CNM BABY A: [id number] BABY A Movement : Present Contraction Frequency : irr FHR Baseline : 125 Accelerations : 15X15 Decelerations : None Variability : Moderate 6-25bpm NST Review: Meets Criteria for Reactive NST NST Review and Verified By : Elton Garcia RN NST Results: Reactive NST REPORT Report Trigger: Send Report
== END 2019-02-23 16:10 | disposition home or self-care (01) ==
LOC: LC 11:51
PROVIDERS: ATTEND Obstetrics & Gynecology
PROC: 4A1HXCZ Monitoring of Products of Conception, Cardiac Rate, External Approach (ICD-10-PCS; principal; 2019-02-23)
DX: O47.1 False labor at or after 37 completed weeks of gestation (principal); Z3A.38 38 weeks gestation of pregnancy
CPT/HCPCS: 59025; 76815; 80307; 81005; 84112

== ENCOUNTER 2019-02-24 11:38 | Inpatient (IN) | payer MEDICAID ==
[2019-02-24 12:27] LABS: APPEARANCE,URINE SLIGHTLY-CLOUDY; BILIRUBIN,URINE NEGATIVE (NEGATIVE); COLOR,URINE STRAW; GLUCOSE, URINE NEGATIVE (NEGATIVE); KETONES,URINE NEGATIVE (NEGATIVE); LEUKOCYTE ESTERASE,URINE LARGE (NEGATIVE); NITRITE,URINE NEGATIVE (NEGATIVE); PROTEIN,URINE NEGATIVE (NEGATIVE); URINE SPECIFIC GRAVITY 1.003; UROBILINOGEN,URINE NEGATIVE mg/dL (<2.0)
--- NOTE | 2019-02-24 12:36 | Admission Physical ---
Datetime Report Generated by CPN: 02/24/2019 12:36 CURRENT ADMISSION Chief Complaint: Uterine Contractions Indication for Induction: Not Applicable Admit Impression : Term, Intrauterine Admit Plan: Admit to Unit; Initiate Labor Protocol ALLERGIES Medication Allergies: Yes Medication Allergies: Penicillins (02/24/2019); amoxicillin (02/24/2019) Latex: No Latex Allergies OBSTETRICAL HISTORY EDC: 03/07/2019 00:00 : 2 Para: 1 Term: 1 : 0 SAB: 0 IAB: 0 Ectopic: 0 Livin Cesareans: 0 VBACs: 0 Multiple Births: 0 Gestational Diabetes: No Rh Sensitization: No Incompetent Cervix: No PRISCILA: No Infertility: No ART Treatment: No Uterine Anomaly: No IUGR: No Hx Previous C/S: No Macrosomia: No Hx Loss/Stillborn: No PIH: No Hx : No Placenta Previa/Abruption: No Depression/PP Depression: No PTL/PROM: No Post Hemorrhage: No Current Procedures: Ultrasound Obstetrical History Comments: G1- 2010 male G2- current, club foot per u/s SEE RECORDS Alcohol: No Marijuana : No Cocaine: No Other Illicit Drugs: No Cigarettes: Never Smoker. 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 HTN for 2 days post delivery- has been stable w.o meds INFECTIOUS HISTORY Gonorrhea: No Genital Herpes: No Chlamydia: No Tuberculosis: No Syphilis: No Hepatitis: No HIV/AIDS Exposure: No Rash or Viral Illness: No HPV: No PHYSICAL EXAM General: Normal HEENT: Deferred Neurologic: Normal Thyroid: Deferred Heart: Normal Lungs: Normal Breast: Deferred Back: Deferred Abdomen: Normal Genitourinary Exam: Deferred Extremities: Normal DTRs: Deferred Pelvic Type: Adequate Vital Signs: Reviewed VAGINAL EXAM Dilatation: 5 Effacement: 80 Station: -2 MEMBRANES Membranes: Intact FETUS A EGA: 38.3 Monitoring: External US FHR- Baseline: 135 Variability: Moderate 6-25bpm Accelerations: 15X15 Decelerations: None Presentation: Oblique Admit Comment: Hx CHTN PLANS FOR LABOR AND DELIVERY Labor and Delivery: None Pain Management: Epidural Feeding Preference: Formula Benefit of Breast Feed Discussed: Yes Circumcision: N/A INFORMED CONSENT Assignment: Tyra Hall MD Signature: with User ID: [email or web address] : with User ID: [email or web address]
[2019-02-24 12:46] LABS: URINE AMPHETAMINES SCREEN NEGATIVE; URINE BARBITURATES SCREEN NEGATIVE; URINE BENZODIAZEPINES SCREEN NEGATIVE; URINE COCAINE SCREEN NEGATIVE; URINE MARIJUANA (THC) SCREEN NEGATIVE; URINE METHADONE SCREEN NEGATIVE; URINE PHENCYCLIDINE SCREEN NEGATIVE
[2019-02-24] MEDS ORDERED: MISOPROSTOL 0.2 MG TABLET ONE (12:46)
[2019-02-24] MEDS ORDERED: OXYTOCIN/NORMAL SALINE 20 UNIT/1,000 ML RTUINJ ONE (12:46)
[2019-02-24] MEDS ORDERED: LIDOCAINE 1% INJ-PF (10 MG/ML) 30 ML SDV ONE (12:46)
[2019-02-24 13:40] LABS: ABSOLUTE LYMPHOCYTES (AUTO) 1.6 10^3/uL (0.5-4.7); ABSOLUTE MONOCYTES (AUTO) 0.7 10^3/uL (0.1-1.4); ABSOLUTE NEUT (AUTO) 6.2 10^3/uL (1.7-8.2); BASOPHILS % (AUTO) 0.5 % (0-2); EOSINOPHILS % (AUTO) 0.2 % (0-6); HEMATOCRIT 32.9 % (36.0-47.0); HEMOGLOBIN 10.9 g/dL (12.0-15.5); LYMPHOCYTES % (AUTO) 18.5 % (13-45); MEAN CORPUSCULAR HEMOGLOBIN 28.1 pg (27.0-33.4); MEAN CORPUSCULAR VOLUME 85 fl (80-97); MONOCYTES % (AUTO) 8.3 % (3-13); PLATELET COUNT 390 10^3/uL (150-450); RED BLOOD COUNT 3.87 10^6/uL (3.72-5.28); RED CELL DISTRIBUTION WIDTH 15.5 % (11.5-14.0); SEGMENTED NEUTROPHILS % (AUTO) 72.5 % (42-78); TOTAL CELLS COUNTED % (AUTO) 100 %; WHITE BLOOD COUNT 8.6 10^3/uL (4.0-10.5)
[2019-02-24] MEDS ORDERED: FENTANYL/BUPIVACAINE/NS/PF 0 MCG/0 ML RTUINJ EPI ONE (15:01)
[2019-02-24] MEDS ORDERED: EPHEDRINE SULFATE INJ 50 MG/1 ML AMPULE ONE (15:01)
[2019-02-24] MEDS ORDERED: BUPIVACAINE HCL 0.25 % INJ/PF (2.5 MG/1 ML) 30 ML VIAL ONE (15:01)
--- NOTE | 2019-02-24 19:23 | Delivery Summary ---
Del Sum A-C Datetime Report Generated by CPN: 02/24/2019 19:23 DELIVERY PERSONNEL DELIVERY PERSONNEL: [id number] Delivery Doctor:: Shaista Barrow CNM Labor and Delivery Nurse:: Sadie Alexander RN Labor and Delivery Nurse:: Evette FunesSCOTT MATERNAL INFORMATION Delivery Anesthesia: Epidural Medications During Delivery: Epidural test dose only Medications After Delivery: Pitocin Drip 20 Units/1000ml NSS Maternal Complications: None Provider Comments: SVDVF over intact perineum, infant vigorous to mothers abd. Cord clamped x 2 cut per FOB. Placenta intact spont del via claire. LABOR SUMMARY EDC: 03/07/2019 00:00 No. Babies in Womb: 1 Attempted: No Labor Anesthesia: Epidural LABOR INFORMATION Reason for Induction: Not Applicable Onset of Labor: 02/24/2019 12:26 Complete Dilatation: 02/24/2019 15:14 Oxytocin: N/A Group B Beta Strep: negative Antibiotics # of Doses: 0 Steroids Given: None Reason Steroids Not Administered: Not Applicable MEMBRANES Membranes Rupture Method: Spontaneous Rupture of Membranes: 02/24/2019 14:02 Length of Rupture (hr): 1.43 Amniotic Fluid Color: Clear Amniotic Fluid Amount: Small Amniotic Fluid Odor: Normal STAGES OF LABOR Stage 1 hr: 2 Stage 1 min: 48 Stage 2 hr: 0 Stage 2 min: 14 Stage 3 hr: 0 Stage 3 min: 4 Total Time in Labor hr: 3 Total Time in Labor min: 6 VAGINAL DELIVERY Episiotomy: None Laceration #1: Vaginal Laceration Extension #1: First Degree Other Laceration: superficial laceration not repair needed Laceration Repair: No CSECTION DELIVERY Primary Indication: N/A Secondary Indication: N/A CSection Incidence: N/A Labor: N/A Elective: N/A CSection Incision: N/A BABY A INFORMATION Delivery Date/Time: 02/24/2019 15:28 Method of Delivery: Vaginal Born in Route : No : N/A Forceps: N/A Vacuum Extraction: N/A Shoulder Dystocia : No PRESENTATION/POSITION BABY A Presentation: Cephalic Cephalic Presentation: Vertex Vertex Position: Left Occipital Anterior Breech Presentation: N/A PLACENTA INFORMATION BABY A Placenta Delivery Time : 02/24/2019 15:32 Placenta Method of Delivery: Spontaneous Placenta Status: Delivered SCORES BABY A Heart Rate 1 min: >100 bpm Resp Effort 1 min: Good Cry Reflex Irritability 1 min: Cough or Sneeze or Pulls Away Muscle Tone 1 min: Active Motion Color 1 min: Body [place], Extremities Blue SCORE 1 MIN: 9 Heart Rate 5 min: >100 bpm Resp Effort 5 min: Good Cry Reflex Irritability 5 min: Cough or Sneeze or Pulls Away Muscle Tone 5 min: Active Motion Color 5 min: Completely [place] SCORE 5 MIN: 10 INFANT INFORMATION BABY A Gestational Age at Delivery: 38.3 Gestational Status: Early Term- 37- 38.6 Weeks Infant Outcome : Liveborn Infant Condition : Stable Sex: Female IDENTIFICATION BABY A Infant Verification Date/Time: 02/24/2019 16:06 ID Band Number: [id number] Mother's Name Verified: Yes Infant RN Verifying : Татьяна Hatfield RNC, Elton Alexander RN WEIGHT/LENGTH BABY A Birthweight (gm): 3599 Weight (lb): 7 Infant Weight (oz): 15 Infant Length (in): 20.00 Infant Length (cm): 50.80 CORD INFORMATION BABY A No. Cord Vessels: 3 Nuchal Cord : N/A Cord Blood Taken: Yes-For Eval (Mom's Blood Type - or O+) Infant Suction: Mouth; Nose ASSESSMENT BABY A Complications: None Skin to Skin: Yes Skin to Skin Time (min): 60 SIGNATURES Assignment: Tyra Hall MD Signature: with User ID: [email or web address] : with User ID: [email or web address] : I was personally available for consultation and serving as supervising physician for the P.
[2019-02-24] MEDS ORDERED: BENZOCAINE/MENTHOL AEROSOL SPRAY 56 ML TOP PRN (19:30)
[2019-02-24] MEDS ORDERED: ACETAMINOPHEN WITH CODEINE #3 TABLET PO PRN ×2 (19:30)
[2019-02-24] MEDS ORDERED: ZOLPIDEM TARTRATE 5 MG TABLET PO PRN (19:30)
[2019-02-24] MEDS ORDERED: DIPH/PERTUSS(ACELL)/TETANUS VAC/PF 0.5 ML SYR (>=10YO) IM PRN (19:30)
[2019-02-24] MEDS ORDERED: DIBUCAINE 1% OINTMENT 56 GM TP PRN (19:30)
[2019-02-24] MEDS ORDERED: OXYTOCIN/NORMAL SALINE 20 UNIT/1,000 ML RTUINJ IV PRN (19:30)
[2019-02-24] MEDS ORDERED: MEASLES,MUMPS&RUBELLA VACC/PF 0.5 ML VIAL SUBCUT PRN (19:30)
[2019-02-24] MEDS ORDERED: FERROUS SULFATE 325 MG TABLET PO ONE (20:39)
[2019-02-24] MEDS ORDERED: DOCUSATE SODIUM 100 MG CAPSULE ONE (20:39)
[2019-02-24] MEDS: FERROUS SULFATE 325 MG TABLET PO SCH (20:50)
[2019-02-24] MEDS: DOCUSATE SODIUM 100 MG CAPSULE PO SCH (20:50)
[2019-02-24] MEDS: IBUPROFEN 800 MG TABLET PO SCH (21:41)
[2019-02-25] MEDS: IBUPROFEN 800 MG TABLET PO SCH ×3 (05:09→21:35)
[2019-02-25 06:51] LABS: ABSOLUTE BASOPHILS # (AUTO) 0.1 10^3/uL (0.0-0.2); ABSOLUTE EOSINOPHILS # (AUTO) 0.1 10^3/uL (0.0-0.6); ABSOLUTE LYMPHOCYTES (AUTO) 2.6 10^3/uL (0.5-4.7); ABSOLUTE NEUT (AUTO) 8.7 10^3/uL (1.7-8.2); BASOPHILS % (AUTO) 0.5 % (0-2); EOSINOPHILS % (AUTO) 0.5 % (0-6); HEMATOCRIT 29.4 % (36.0-47.0); HEMOGLOBIN 9.6 g/dL (12.0-15.5); LYMPHOCYTES % (AUTO) 20.8 % (13-45); MEAN CORPUSCULAR HEMOGLOBIN 27.7 pg (27.0-33.4); MEAN CORPUSCULAR HGB CONC 32.6 g/dL (32.0-36.0); MEAN CORPUSCULAR VOLUME 85 fl (80-97); MONOCYTES % (AUTO) 8.4 % (3-13); PLATELET COUNT 331 10^3/uL (150-450); RED BLOOD COUNT 3.45 10^6/uL (3.72-5.28); RED CELL DISTRIBUTION WIDTH 15.6 % (11.5-14.0); SEGMENTED NEUTROPHILS % (AUTO) 69.8 % (42-78); TOTAL CELLS COUNTED % (AUTO) 100 %; WHITE BLOOD COUNT 12.4 10^3/uL (4.0-10.5)
--- NOTE | 2019-02-25 10:22 | PDOC PROGRESS REPORT ---
Subjective-OB Progress Note for:: 02/25/19 Physical Exam (OB) Vital Signs: Temp Pulse Resp BP Pulse Ox 98.0 F 84 16 125/86 H 97 02/25/19 07:13 02/25/19 07:13 02/25/19 07:13 02/25/19 07:13 02/25/19 07:13 Intake & Output 02/24/19 02/25/19 02/26/19 06:59 06:59 06:59 Intake Total 480 Balance 480 Weight 96.4 kg - PIH/Pre-Eclampsia Clonus: Negative Headache: Absent Epigastric Pain: No Visual Changes: No - Lochia Lochia Amount: Scant < 10 ml Lochia Color: Rubra/Red - Abdomen Description: Soft Hernia Present: No Bowel Sounds: Normoactive Flatus Presence: Present Stool: No Fundal Description: Firm, Midline Fundal Height: u/u - u/2 Objective-Diagnostic Laboratory: 02/25/19 06:08 02/24/19 02/24/19 02/24/19 11:45 13:14 13:14 WBC 8.6 RBC 3.87 Hgb 10.9 L Hct 32.9 L MCV 85 MCH 28.1 MCHC 33.0 RDW 15.5 H Plt Count 390 Seg Neutrophils % 72.5 Lymphocytes % 18.5 Monocytes % 8.3 Eosinophils % 0.2 Basophils % 0.5 Absolute Neutrophils 6.2 Absolute Lymphocytes 1.6 Absolute Monocytes 0.7 Absolute Eosinophils 0.0 Absolute Basophils 0.0 Urine Color STRAW Urine Appearance SLIGHTLY-CLOUDY Urine pH 9.0 Ur Specific [place] 1.003 Urine Protein NEGATIVE Urine Glucose (UA) NEGATIVE Urine Ketones NEGATIVE Urine Blood MODERATE H Urine Nitrite NEGATIVE Ur Leukocyte Esterase LARGE H Blood Type O NEGATIVE Antibody Screen NEGATIVE 02/25/19 02/25/19 06:08 06:08 WBC 12.4 H RBC 3.45 L Hgb 9.6 L Hct 29.4 L MCV 85 MCH 27.7 MCHC 32.6 RDW 15.6 H Plt Count 331 Seg Neutrophils % 69.8 Lymphocytes % 20.8 Monocytes % 8.4 Eosinophils % 0.5 Basophils % 0.5 Absolute Neutrophils 8.7 H Absolute Lymphocytes 2.6 Absolute Monocytes 1.0 Absolute Eosinophils 0.1 Absolute Basophils 0.1 Urine Color Urine Appearance Urine pH Ur Specific [place] Urine Protein Urine Glucose (UA) Urine Ketones Urine Blood Urine Nitrite Ur Leukocyte Esterase Blood Type O NEGATIVE Antibody Screen
[2019-02-25] MEDS: PRENATAL VITAMIN W DHA CAPSULE PO SCH (11:05)
[2019-02-25] MEDS: FERROUS SULFATE 325 MG TABLET PO SCH ×2 (11:05→18:09)
[2019-02-25] MEDS: SENNOSIDES/DOCUSATE 8.6-50 MG 1 EACH TABLET PO SCH (11:05)
[2019-02-25] MEDS: DOCUSATE SODIUM 100 MG CAPSULE PO SCH ×2 (11:05→18:09)
[2019-02-26] MEDS: IBUPROFEN 800 MG TABLET PO SCH (05:50)
[2019-02-26 08:55] VITALS: BP 123/86
[2019-02-26] MEDS: SENNOSIDES/DOCUSATE 8.6-50 MG 1 EACH TABLET PO SCH (09:27)
[2019-02-26] MEDS: FERROUS SULFATE 325 MG TABLET PO SCH (09:27)
[2019-02-26] MEDS: DOCUSATE SODIUM 100 MG CAPSULE PO SCH (09:27)
[2019-02-26] MEDS: PRENATAL VITAMIN W DHA CAPSULE PO SCH (09:27)
--- NOTE | 2019-02-26 12:47 | PDOC PROGRESS REPORT ---
Subjective-OB Progress Note for:: 02/26/19 Subjective: Doing well, ready to go home, breast/bottle feeding, voiding, eating well, scant lochia Physical Exam (OB) Vital Signs: Temp Pulse Resp BP Pulse Ox 97.5 F 86 20 123/86 H 100 02/26/19 08:05 02/26/19 08:05 02/26/19 08:05 02/26/19 08:05 02/26/19 08:05 Intake & Output 02/25/19 02/26/19 02/27/19 06:59 06:59 06:59 Intake Total 480 300 Balance 480 300 Weight 96.4 kg - PIH/Pre-Eclampsia Clonus: Negative Headache: Absent Epigastric Pain: No Visual Changes: No - Lochia Lochia Amount: Scant < 10 ml Lochia Color: Rubra/Red - Abdomen Description: Soft Hernia Present: No Fundal Description: Firm, Midline Fundal Height: u/u - u/2 Objective-Diagnostic Laboratory: 02/25/19 06:08 02/25/19 06:08 Blood Type O NEGATIVE Assessment and Plan(PN) - Assessment and Plan (1) Anemia Qualifiers: Anemia type: iron deficiency Is this a current diagnosis for this admission?: Yes (2) Chronic hypertension Is this a current diagnosis for this admission?: Yes (3) Delivery normal Is this a current diagnosis for this admission?: Yes - Time Spent with Patient Time with patient: Less than 15 minutes Medications reviewed and adjusted accordingly: Yes - Disposition Anticipated Discharge: Home Within: within 24 hours
--- NOTE | 2019-02-26 12:51 | PDOC DISCHARGE SUMMARY ---
Final Diagnosis Discharge Date: 02/26/19 - Final Diagnosis (1) Anemia Is this a current diagnosis for this admission?: Yes (2) Chronic hypertension Is this a current diagnosis for this admission?: Yes (3) Delivery normal Is this a current diagnosis for this admission?: Yes Discharge Data - Discharge Medication Home Medications: Vits96/Iron Fum/Folic [ Tablet] 1 tab PO DAILY 11/10/18 Ferrous Sulfate [Feosol 325 mg Tablet] 325 mg PO BID tablet 02/26/19 Gestational Age: 38.3 Reason(s) for Admission: Onset of Labor Intrapartum Procedure(s): Spontaneous Vaginal Delivery Complication(s): Laceration-Vaginal Laceration-Degree: 1st - [place] Data Baby 1 Female at 1 minute: 9 at 5 minutes: 10 Weight: 3.6 kg Home with Mother: Yes Complications: No - Diagnosis Test Laboratory: Temp Pulse Resp BP Pulse Ox 97.5 F 86 20 123/86 H 100 02/26/19 08:05 02/26/19 08:05 02/26/19 08:05 02/26/19 08:05 02/26/19 08:05 02/24/19 02/24/19 02/25/19 11:45 13:14 06:08 RBC 3.87 3.45 L Hgb 10.9 L 9.6 L Hct 32.9 L 29.4 L Urine Opiates Screen NEGATIVE - Discharge information/Instructions Discharge Activity: Activity As Tolerated, No Lifting Over 10 Pounds, No Lifting/Push/Pulling, Pelvic Rest Discharge Diet: As Tolerated, Regular Disposition: HOME, SELF-CARE Follow up with: [facility] in: 1, Days - bp check
== END 2019-02-26 15:06 | disposition home or self-care (01) | DRG 807 ==
LOC: LC 11:38 → LR 12:35 → 2S 21:00
PROVIDERS: ADMIT Obstetrics & Gynecology; ATTEND Obstetrics & Gynecology
PROC: 10E0XZZ Delivery of Products of Conception, External Approach (ICD-10-PCS; principal; 2019-02-24)
PROC: 3E0234Z Introduction of Serum, Toxoid and Vaccine into Muscle, Percutaneous Approach (ICD-10-PCS; 2019-02-26)
DX: O99.214 Obesity complicating childbirth (principal); Z37.0 Single live birth; O99.52 Diseases of the respiratory system complicating childbirth; J45.909 Unspecified asthma, uncomplicated; O70.0 First degree perineal laceration during delivery; D50.9 Iron deficiency anemia, unspecified; O99.02 Anemia complicating childbirth; E66.9 Obesity, unspecified; Z3A.38 38 weeks gestation of pregnancy; O26.893 Other specified pregnancy related conditions, third trimester; Z67.41 Type O blood, Rh negative; O10.92 Unspecified pre-existing hypertension complicating childbirth; Z88.0 Allergy status to penicillin
CPT/HCPCS: 36415; 80307; 81005; 85025; 85461; 86592; 86850; 86900; 86901; J2590; J2790; J3010; J3490

== ENCOUNTER 2019-12-01 18:03 | Emergency (ER) | payer SELFPAY ==
--- NOTE | 2019-12-01 20:02 | ER Document Report ---
HPI - HPI Time Seen by Provider: 12/01/19 19:57 Notes: CHIEF COMPLAINT: Sore throat, cough for 4 days HPI: 24-year-old female presenting to the emergency department for evaluation of sore throat with progressively worsening cough over the last 4 days. No definitive fever has had chills. ROS: See HPI - all other systems were reviewed and are otherwise negative Constitutional: no fever Eyes: no drainage, no blurred vision ENT: no runny nose, positive sore throat Cardiovascular: no chest pain Resp: no SOB, positive cough GI: no vomiting, no diarrhea, no abdominal pain : no dysuria Integumentary: no rash Allergy: no hives Musculoskeletal: no extremity pain or swelling Neurological: no numbness/tingling, no weakness MEDICATIONS: I agree with the patient medications as charted by the RN. ALLERGIES: I agree with the allergies as charted by the RN. PAST MEDICAL HISTORY/PAST SURGICAL HISTORY: Reviewed and agree as charted by RN. SOCIAL HISTORY: Reviewed and agree as charted by RN. FAMILY HISTORY: No significant familial comorbid conditions directly related to patient complaint EXAM: Reviewed vital signs as charted by RN. CONSTITUTIONAL: Alert and oriented and responds appropriately to questions. Well-appearing; well-nourished, no acute distress HEAD: Normocephalic; atraumatic EYES: PERRL; Conjunctivae clear, sclerae non-icteric ENT: normal nose; no rhinorrhea; moist mucous membranes; mild pharyngeal erythema without exudate, no uvula edema or deviation, no tonsillar hypertrophy, phonation normal NECK: Supple without meningismus; non-tender; no cervical lymphadenopathy, no masses CARD: RRR; no murmurs, no clicks, no rubs, no gallops; symmetric distal pulses RESP: Normal chest excursion without splinting or tachypnea; breath sounds clear and equal bilaterally; no wheezes, no rhonchi, no rales, pulse oximetry 97% on room air not hypoxic ABD/GI: Normal bowel sounds; non-distended; soft, non-tender, no rebound, no guarding; no palpable organomegaly or masses. BACK: The back appears normal and is non-tender to palpation, there is no CVA tenderness EXT: Normal ROM in all joints; non-tender to palpation; no cyanosis, no effusions, no edema SKIN: Normal color for age and race; warm; dry; good turgor; no acute lesions noted NEURO: Moves all extremities equally; Motor and sensory function intact PSYCH: The patient's mood and manner are appropriate. Grooming and personal hygiene are appropriate. MDM: 24-year-old female with upper respiratory symptoms including cough and sore throat for 4 days. Outside the window for flu treatment she declines flu test. Will test strep given the pharyngitis and also obtain chest x-ray as she is concerned about pneumonia. If strep and chest x-ray negative for acute findings will treat as a viral syndrome symptomatically - REPRODUCTIVE Reproductive: DENIES: : Past Medical History - Social History Smoking Status: Unknown if Ever Smoked Family History: Reviewed & Not Pertinent Pulmonary Medical History: Reports: Hx Asthma Renal/ Medical History: Denies: Hx Peritoneal Dialysis Past Surgical History: Reports: Hx Genitourinary Surgery - prolapsed urethra - Immunizations Hx Diphtheria, Pertussis, Tetanus Vaccination: Yes Vertical Provider Document - INFECTION CONTROL TRAVEL OUTSIDE OF THE [place] IN LAST 30 DAYS: No Course - Re-evaluation Re-evalutation: 12/01/19 21:02 Rapid strep is negative. Chest x-ray negative for infiltrate. Will treat symptomatically, albuterol, steroids, Mucinex, PCP follow-up - Vital Signs Vital signs: Temp Pulse Resp BP Pulse Ox 98.2 F 93 16 144/74 H 97 12/01/19 18:21 12/01/19 18:21 12/01/19 18:21 12/01/19 18:21 12/01/19 18:21 Discharge - Discharge Clinical Impression: Viral URI with cough, Acute viral pharyngitis Condition: Stable Disposition: HOME, SELF-CARE Additional Instructions: Take the medications as prescribed, use the albuterol inhaler 2 puffs every 4 hours as needed for coughing. Strep test tonight was negative. Chest x-ray did not show evidence of pneumonia Prescriptions: Prednisone [Deltasone 20 mg Tablet] 2 tab PO DAILY 5 Days #10 tablet Guaifenesin/Dextromethorphan [Mucinex Dm ER 600-30 mg Tablet] 1 each PO BID #20 tab.er.12h Albuterol Sulfate [Proair HFA Inhalation Aerosol 8.5 gm MDI] 2 puff IH Q4H PRN #1 mdi PRN Reason: Referrals: LUC GARZA MD [Primary Care Provider] - Follow up as needed
--- NOTE | 2019-12-01 20:40 | RADIOLOGY REPORT (SQ) ---
EXAM DESCRIPTION: PA and lateral radiographs of the chest CLINICAL HISTORY: 24 years Female, cough COMPARISON: Two views of the chest July 17, 2016 FINDINGS: Lungs: Lungs are clear. No pneumonia or edema. No pneumothorax or pleural effusion. Mediastinum: Cardiac and mediastinal silhouette are stable Bones: Curvature of the thoracic spine convex right is unchanged IMPRESSION: No acute process. No significant interval change.
[2019-12-01 21:39] VITALS: BP 139/87
== END 2019-12-01 21:28 | disposition home or self-care (01) ==
LOC: ER 18:03
DX: J06.9 Acute upper respiratory infection, unspecified (principal); J02.9 Acute pharyngitis, unspecified
CPT/HCPCS: 71046; 87070; 87880; 99283